=== PATIENT | male | born 1995 | race Two or more races ===

== ENCOUNTER → 2018-01-16 | Outpatient (CLI) | payer OTHER ==
[2018-01-16] MEDS: IOHEXOL 180 MG/ML 10 ML VIAL. IT (09:00)
[2018-01-16] MEDS: LIDOCAINE WITH 8.4% SOD BICARB 3 ML DISP.SYRIN. INJ (09:00)
== END | disposition home or self-care (01) ==
LOC: RAD 12:34
DX: M48.061 Spinal stenosis, lumbar region without neurogenic claudication (principal)
CPT/HCPCS: 72132; 72265; Q9965